=== PATIENT | female | born 1955 | race Caucasian/White ===

== ENCOUNTER 2020-06-05 02:00 | Outpatient (CLI) | payer MEDICARE, MEDICAID, SELFPAY ==
[2020-06-05 22:26] LABS: SARS-CoV-2 RNA PCR Negative
== END 2020-06-05 02:01 | disposition home or self-care (01) ==
LOC: ANHCOVIDDT 02:00
PROVIDERS: PCP Internal Medicine; Visit Provider Internal Medicine Gastroenterology
DX: Z01.818 Encounter for other preprocedural examination (principal); Z20.828 Contact with and (suspected) exposure to other viral communicable diseases
CPT/HCPCS: 87635; C9803; U0003

== ENCOUNTER 2020-06-09 02:05 | Day surgery (SDC) | payer MEDICARE, MEDICAID, SELFPAY ==
[2020-06-04 13:22] VITALS: BMI 36.8
[2020-06-09 06:54] VITALS: BMI 37.3
[2020-06-09] MEDS: LACTATED RINGERS 1,000 ML 150 ML IV CONT (07:01)
--- NOTE | 2020-06-09 07:10 | WPDANESEPPF ---
Anes - Initial Pre Proc Eval Procedure: Operation Date: 06/09/20 08:00 Proposed Procedures p Esophagogastroduodenoscopy - Jerome Alves MD Date/Time: 06/09/20 07:10 Surgeon: Jerome Alves MD Pre Op Diagnosis: GERD Patient Data Age: 64 Gender: F Height: 5 ft 5 in Weight: 101.7 kg Allergies Allergy/AdvReac Type Severity Reaction Status Date / Time diphenhydramine Allergy Mild Hyperactive Verified 06/09/20 06:37 [From Benadryl] Home Medications Medication Instructions Recorded Confirmed Type baclofen 20 mg tablet 20 mg PO TID tablet 07/16/19 06/04/20 History fluticasone 250 mcg-salmeterol 50 1 inhalation INHALATION BID 07/16/19 06/04/20 History mcg/dose blistr powdr for inhalation albuterol sulfate 90 mcg/actuation 2 puff INHALATION Q4-6H PRN #18 gm 09/15/19 06/09/20 Rx aerosol inhaler venlafaxine 75 mg capsule,extended 75 mg PO DAILY #90 cap 12/02/19 06/04/20 Rx release 24 hr pantoprazole 40 mg tablet,delayed 40 mg PO DAILY #90 tablet 01/08/20 06/04/20 Rx release triamterene 75 1 tablet PO DAILY #90 tablet 02/16/20 06/04/20 Rx mg-hydrochlorothiazide 50 mg tablet amlodipine 5 mg tablet 5 mg PO DAILY #90 tablet 02/24/20 06/04/20 Rx lisinopril 5 mg tablet 5 mg PO DAILY #90 tablet 02/24/20 06/04/20 Rx cholecalciferol (vitamin D3) 1,250 1,250 mcg PO WEEKLY #8 tablet 05/03/20 06/04/20 Rx mcg (50,000 unit) tablet meloxicam 7.5 mg tablet 7.5 mg PO DAILY 05/03/20 06/04/20 History fluticasone propionate 50 2 spray NASAL DAILY #15.8 ml 05/11/20 06/04/20 Rx mcg/actuation nasal spray,suspension bupropion HCl 100 mg tablet,12 hr 100 mg PO BID #180 tablet 05/21/20 06/04/20 Rx sustained-release montelukast 10 mg tablet 10 mg PO DAILY #90 tablet 05/26/20 06/04/20 Rx levothyroxine 25 mcg tablet 25 mcg PO DAILY #90 tablet 05/31/20 06/04/20 Rx acetaminophen [Tylenol] 650 mg PO ONCE PRN 06/04/20 06/04/20 History ciprofloxacin HCl 250 mg tablet 250 mg PO Q12H #6 tablet 06/04/20 06/09/20 Rx fexofenadine [Catalina] 180 mg PO DAILY 06/04/20 06/04/20 History gabapentin 900 mg PO TID 06/04/20 06/04/20 History Patient hx anesthesia problems: none Family hx anesthesia problems: none PMFSH Past Medical History Medical History Cholecystectomy planned Depression Encounter for screening colonoscopy GERD (gastroesophageal reflux disease) Hyperglycemia Hypertension Hypothyroidism Insomnia Obesity (BMI 30-39.9) Vitamin D deficiency Surgical History Surgical History H/O section H/O hernia repair 1991, 02/13 H/O oophorectomy 1993 H/O tubal ligation 1991 History of intestinal surgery Bowel reconstruction 02/13 History of tonsillectomy Family History Family History Mother Family history of coronary artery disease Sibling Hypertension Grandparent Hypertension Social History Social History Smoking packs per day: 1 Smoking cigarettes per day: 20.0 Years smoked: 2 Smoking pack-years: 2.00 Smoking status: Former smoker Tobacco type: cigarettes Second hand tobacco smoke exposure: No Alcohol intake: never Substance use: never Substance use type: does not use Living arrangements: alone Spiritual care concerns: No Anes - Eval Final PreProcedure Day of Procedure 06/09/20 07:10 Patient weight: obese Heart: regular rate and rhythm Lungs: decreased breath sounds Airway: Mallampati scale class II Neurological: alert and oriented Last oral intake: >/= 8 hours ASA classification: III Emergent: no Anesthetic plan: proceed Anesthesia type and monitoring: general GIVS and standard monitoring Informed Consent: The patient's anesthetic plan and its attendant risks and benefits were discussed with
[2020-06-09 07:22] VITALS: BP 138/84; PULSE 79; RESP 18; TEMP 36.7; O2SAT 95
--- NOTE | 2020-06-09 08:09 | WPDHPUPDATE1 ---
History and Physical Update Update Date/Time: 06/09/20 08:09 History and Physical has been reviewed, including an updated exam of the patient. There are NO changes in the patient's condition. Risks, benefits, and alternatives have been discussed and questions answered. Patient agrees to proceed with procedure.
[2020-06-09 08:12] VITALS: BP 119/80; PULSE 68; RESP 17; O2SAT 97
[2020-06-09 08:22] VITALS: BP 120/72; PULSE 65; RESP 14; O2SAT 96
[2020-06-09 08:32] VITALS: BP 122/74; PULSE 67; RESP 18; O2SAT 96
== END 2020-06-09 08:50 | disposition home or self-care (01) ==
PROVIDERS: PCP Internal Medicine; Visit Provider Internal Medicine Gastroenterology
PROC: 0DJ08ZZ Inspection of Upper Intestinal Tract, Via Natural or Artificial Opening Endoscopic (ICD-10-PCS; CPT 43235; principal; 2020-06-09 08:00)
DX: K21.9 Gastro-esophageal reflux disease without esophagitis (principal); K29.50 Unspecified chronic gastritis without bleeding; K44.9 Diaphragmatic hernia without obstruction or gangrene; I10 Essential (primary) hypertension; E03.9 Hypothyroidism, unspecified; E55.9 Vitamin D deficiency, unspecified; E66.9 Obesity, unspecified; M54.5 Low back pain; G47.00 Insomnia, unspecified; F32.9 Major depressive disorder, single episode, unspecified
CPT/HCPCS: 43239; 88305; C9803; J2001; J2704; J7120; U0003

== ENCOUNTER 2021-05-30 07:32 | Outpatient (CLI) | payer MEDICARE, MEDICAID, SELFPAY ==
--- NOTE | ~2021-05-30 | NM_ITS ---
EXAMINATION: NM alana stress w perfusion DATE: 05/30/2021 13:23 INDICATION: Abnormal electrocardiogram TECHNIQUE: Rest images were obtained following intravenous administration of 10 mCi Tc99m tetrofosmin (Myoview). The patient was infused intravenously with Lexiscan (Regadenoson). Then, 30 mCi Tc99m tet rofosmin (Myoview) was administered intravenously, and stress images were obtained. Data was reconstr ucted into short axis and horizontal and vertical long axis SPECT images. Gated SPECT images were als o obtained. COMPARISON: None. FINDINGS: There is no definite reversible or fixed perfusion abnormality to suggest ischemia or infar ction. There is normal left ventricular chamber size, wall motion and ejection fraction. Left ventric ular ejection fraction measures 64%. IMPRESSION: 1. Normal myocardial perfusion at rest and during stress. 2. Left ventricular ejection fraction measuring %. Reviewed, dictated and finalized at location A.
--- NOTE | 2021-05-30 07:49 | ECHO_ITS ---
Patient Info Name: Isamar Lyn Age: 65 years : 1955 Gender: Female Ht: 65 in Wt: 236 lbs BSA: 2.27 m2 HR: 82 bpm BP: 140 / 99 mmHg Technical Quality: Fair Exam Date: 05/30/2021 7:59 AM Exam Location: [facility] Pulmonary Patient Status: Outpatient Admit Date: 05/30/2021 Staff Ordering Physician: Leelee Tripathi Hazmat Tanker Driver: Katherin Richetr RDCS Attending Provider: Leelee Tripathi Referring Physician: Deuce CHRISTY; Exam Type: CA echo doppler color flow Study Info Indications R94.31 - Abnormal electrocardiogram ECG EKG Complete two-dimensional, color flow and Doppler transthoracic echocardiogram is performed. Summary 1. Complete two-dimensional, color flow and Doppler transthoracic echocardiogram is performed. 2. Left ventricular chamber dimension is normal. 3. Left ventricular systolic function is normal, estimated at 55-60%. 4. The left ventricular diastolic function is grade I diastolic dysfunction. 5. E/e' 6 is not elevated. 6. Interatrial septal aneurysm with no evidence of shunting. 7. No pulmonary hypertension, estimated pulmonary arterial systolic pressure is 15 mmHg. Left Ventricle E/e' 6 is not elevated. Left ventricular chamber dimension is normal. Left ventricular systolic function is normal, estimated at 55-60%. The left ventricular diastolic function is grade I diastolic dysfunction. Right Ventricle Right ventricular chamber dimension is normal. Right ventricular systolic function is normal. Left Atria Left atrial chamber dimension is normal. Right Atria Right atrial chamber dimension is normal. Atrial Septum Interatrial septal aneurysm with no evidence of shunting. Aortic Valve The aortic valve is trileaflet. There is no aortic valve stenosis. There is no aortic valve regurgitation. Pulmonic Valve There is no pulmonic regurgitation. Mitral Valve There is no mitral valve stenosis. There is no mitral valve regurgitation. Tricuspid Valve There is no tricuspid valve regurgitation. No pulmonary hypertension, estimated pulmonary arterial systolic pressure is 15 mmHg. Pericardium/Pleural There is no pericardial effusion. Inferior Vena Cava Normal inferior vena cava with >50% collapse upon inspiration consistent with normal right atrial pressure, 5 mmHg. Aorta The aortic root size at the sinus of Valsalva is normal. Left Ventricular Outflow Tract Name Value Normal LVOT 2D LVOT Diameter 2.0 cm LVOT Doppler LVOT Peak Gradient 3 mmHg LVOT Mean Gradient 2 mmHg LVOT VTI 15 cm LVOT VTI/AV VTI Ratio 0.9 LVOT Stroke Volume 49 ml LVOT CO 3.8 l/min LVOT CI 1.7 l/min/m2 Pulmonic Valve Name Value Normal RVOT Doppler
--- NOTE | 2021-05-30 07:49 | EST_ITS ---
Patient Info Name: Isamar Lyn Age: 65 years : 1955 Gender: Female Ht: 65 in Wt: 236 lbs BSA: 2.27 m2 HR: 85 bpm BP: 142 / 95 mmHg Heart Rhythm: Sinus Rhythm Exam Date: 05/30/2021 10:08 AM Exam Location: [facility] Stress Patient Status: Outpatient Admit Date: 05/30/2021 Staff Ordering Physician: Leelee Tripathi Attending Provider: Leelee Tripathi Exercise Technologist: Neetu Baltazar CT Exercise Physician: Donny Menard DO Exam Type: CA stress alana w NM Study Info Indications R94.31 - Abnormal electrocardiogram ECG EKG A regadenoson stress test was performed. Summary 1. 1. Negative lexiscan stress test for ischemic ST changes by ECG criteria. 2. 2. Baseline hypertension. 3. 3. Nuclear scan to follow and will be reported separately. Please correlate with it. 4. 4. Patient informed of the above results. Protocol: Lexiscan Stress ECG Details Stage: REST Duration (min): 2 min : 36 sec HR (bpm): 87 SBP (mmHg): 142 DBP (mmHg): 95 Stage: REST Duration (min): 11 min : 58 sec HR (bpm): 93 SBP (mmHg): 142 DBP (mmHg): 95 Stage: STAGE 1 Duration (min): 0 min : 59 sec HR (bpm): 103 SBP (mmHg): 147 DBP (mmHg): 75 Stage: RECOVERY Duration (min): 1 min : 0 sec HR (bpm): 99 SBP (mmHg): 147 DBP (mmHg): 75 Stage: RECOVERY Duration (min): 2 min : 0 sec HR (bpm): 97 SBP (mmHg): 147 DBP (mmHg): 75 Stage: RECOVERY Duration (min): 2 min : 53 sec HR (bpm): 94 SBP (mmHg): 170 DBP (mmHg): 57 Rest HR: 93 bpm Peak HR: 103 bpm Rest Sys BP: 142 mmHg Peak Sys BP: 170 mmHg Max Pred HR: 157 bpm % Max Pred HR: 66 % Target HR: 133 bpm Max RPP: 17,510 bpm*mmHg Termination Reason: Completed protocol Cardiac Symptoms: Shortness of breath Total Time: 1 min : 0 sec Rest Garcia BP: 95 mmHg Peak Garcia BP: 57 mmHg Total Dose: 0.4 mg Resting ECG Sinus rhythm, IRBBB. Stress ECG No ST changes. Arrhythmias None. Report Signatures
--- NOTE | 2021-05-30 13:16 | WPDPFTINT ---
PFT Procedure Performed PFT Procedure Performed Spirometry with Pre/Post Bronchodilator Plethysmography (Lung Vol) Diffusing Cap (DLCO) Flow Vol Loop PFT Interpretation Lung volumes were measured with the body plethysmography method. The diminished expiratory reserve volume is related to obesity. The remainder lung volumes are unremarkable. Spirometry showed normal expiratory flow rates and a normal FEV1 to FVC ratio of 81%. Following administration of a bronchodilator, there was no significant increase in expiratory flow rates. Lung diffusion capacity is within the normal range. The flow volume loop is unremarkable. Impression: Spirometry, lung volumes and lung diffusion capacity all within the normal range.
== END 2021-05-30 07:33 | disposition home or self-care (01) ==
PROVIDERS: PCP Internal Medicine; Visit Provider Clinical Nurse Specialist
DX: R94.31 Abnormal electrocardiogram [ECG] [EKG] (principal)
CPT/HCPCS: 78452; 93017; 93306; 94060; 94726; 94729; A9502; J2785